=== PATIENT | female | born 1985 | race Caucasian/White ===

== ENCOUNTER 2019-07-06 05:53 | Emergency (ER) | payer MEDICAID ==
[~2019-07-06] VITALS: Ht 157.5 cm; Wt 68.0 kg
[2019-07-06 05:58] VITALS: BP_SYST 140
--- NOTE | 2019-07-06 06:03 | NUR ---
Patient to ER bed 7 to gown for evaluation. Side rails up.
--- NOTE | 2019-07-06 06:15 | NUR ---
ER at bedside examining patient.
--- NOTE | 2019-07-06 06:18 | NUR ---
Urine HCG done, results NEGATIVE.
[2019-07-06] MEDS ORDERED: PENICILLIN G BENZATHINE 1.2 MMU/2 ML SYR IM ONE (06:30)
--- NOTE | 2019-07-06 06:37 | NUR ---
RAPID STREP RESULT BACK,DR DEAN NOTIFIED.
--- NOTE | 2019-07-06 06:38 | NUR ---
DR DEAN AT THE BEDSIDE DISCUSSING THE RESULT AND PLAN OF TREATMENT TO THE PT.
[2019-07-06] MEDS ORDERED: LIDOCAINE VISCOUS 2%, 15 ML UDC MM ONE (06:45)
[2019-07-06] MEDS ORDERED: IBUPROFEN 600 MG TABLET PO ONE (06:45)
--- NOTE | 2019-07-06 06:50 | NUR ---
MEDICATED PT ORDERED BY DR DEAN.PT TOLERATED WELL.
--- NOTE | 2019-07-06 06:59 | NUR ---
Patient given written and verbal discharge instructions and verbalizes understanding. ER MD discussed with patient the results and treatment provided. Patient in stable condition. ID arm band removed. Rx of norco,penicillin v,lidocaine viscous given. Patient educated on pain management and to follow up with PMD. Pain Scale 5/10. Opportunity for questions provided and answered. Medication side effect fact sheet provided.
[2019-07-06 07:02] VITALS: BP_SYST 132
== END 2019-07-06 06:59 | disposition home or self-care (01) ==
LOC: SED 05:53
DX: J02.0 Streptococcal pharyngitis (principal)
CPT/HCPCS: 81025; 86403; 96372; 99283; J0561; J2001; 36415

== ENCOUNTER 2020-05-28 00:01 | Emergency (ER) | payer MEDICAID ==
[~2020-05-28] VITALS: Ht 157.5 cm; Wt 72.6 kg
[2020-05-28 00:01] VITALS: BP_SYST 142
[2020-05-28] MEDS ORDERED: CEPHALEXIN 500 MG CAPSULE PO ONE (00:45)
[2020-05-28] MEDS ORDERED: IBUPROFEN 800 MG TABLET PO ONE (00:45)
== END 2020-05-28 01:20 | disposition home or self-care (01) ==
LOC: SED 00:01
DX: T63.441A Toxic effect of venom of bees, accidental (unintentional), initial encounter (principal); L03.032 Cellulitis of left toe; Y92.832 Beach as the place of occurrence of the external cause
CPT/HCPCS: 81025; 99283

== ENCOUNTER 2023-07-23 16:58 | Emergency (ER) | payer MEDICAID ==
[~2023-07-23] VITALS: Ht 157.5 cm; Wt 72.6 kg
[2023-07-23 17:04] VITALS: BP_SYST 133; PULSE 94; RESP 18; TEMP 98.3; O2SAT 96
[2023-07-23 18:00] LABS: INFLUENZA TYPE A Negative (NEGATIVE); INFLUENZA TYPE B NEGATIVE (NEGATIVE)
[2023-07-23 18:01] LABS: COVID19 ANTIGEN SOFIA FIA NEGATIVE (NEGATIVE)
[2023-07-23] MEDS ORDERED: ALBMDI INH (19:01)
[2023-07-23] MEDS ORDERED: PRED20TA PO (19:01)
[2023-07-23] MEDS ORDERED: IPRATROPIUM/ALBUTEROL SULFATE 3 ML AMPUL.NEB (DUONEB) ONE (19:03)
[2023-07-23] MEDS ORDERED: IPRATROPIUM/ALBUTEROL SULFATE 3 ML AMPUL.NEB (DUONEB) INH ONE (19:15)
[2023-07-23 19:31] VITALS: BP_SYST 123; PULSE 80; RESP 14; TEMP 97.6; O2SAT 97
== END 2023-07-23 19:32 | disposition home or self-care (01) ==
LOC: SED 16:58
DX: J40 Bronchitis, not specified as acute or chronic (principal); R05.9 Cough, unspecified; R06.02 Shortness of breath; R09.81 Nasal congestion; Z79.899 Other long term (current) drug therapy; Z20.822 Contact with and (suspected) exposure to COVID-19
CPT/HCPCS: 36415; 71045; 99284